=== PATIENT | female | born 1980 | race Caucasian/White ===

== ENCOUNTER 2022-02-07 10:14 | Emergency (ER) | payer SELFPAY ==
[2022-02-07 10:42] VITALS: BP 119/73; PULSE 120; RESP 24; TEMP 37.8; O2SAT 98; BMI 26.1
--- NOTE | 2022-02-07 10:45 | XR_ITS ---
WS: [id number] Exam: XR chest 1V portable [id number] Date/Time of Exam: 02/07/2022 10:30 AM Reason For Exam: sob Comparison 06/07/2016. The lungs are clear and fully expanded. Normal cardiomediastinal silhouette. Regional bony elements a ppear normal. No pleural effusions. XR/XR chest 1V portable [id number] IMPRESSION: 1. Negative chest.
--- NOTE | 2022-02-07 10:53 | ED_ITS ---
HPI - Fever General: Chief Complaint: Fever Stated Complaint: fever,sore throat,sob Time Seen by Provider: 02/07/22 10:52 History of Present Illness: Mr. Ballard is a 41-year-old lady with history of psychiatric disorder, diabetes, polycystic ovary disease, MRSA infection, tobaccoism presented to the emergency department due to generalized illness. She reports onset of symptoms 3 to 4 days ago and subacute. Endorses fevers, cough, body aches, generalized malaise, nausea, weakness, and near syncope. She was previously seen at outside facility diagnosed with viral syndrome however symptoms have continued to worsen despite inhaler treatment. Intensity symptoms is moderate to severe worse with exertion and movement. Body aches are the largest component of the patient's generalized discomfort. Does have sick contacts though not close contacts at work. No other specific changes in health, exacerbating, or alleviating factors identified. Onset (ago): day(s) Context: sick contacts Exacerbating factors: exertion Relieving factors: nothing Associated symptoms: Reports chills, cough, headache(s), myalgias, nausea, short of breath and sore throat Review of Systems General: Reports: 10 or more systems reviewed and unremarkable except in HPI and below Const: Reports: chills GI: Reports: nausea Neuro: Reports: headache(s) PFSH ED PFSH: Medical History (Updated 02/23/22 @ 17:21 by David Bell MD) No significant past medical history Surgical History (Updated 02/23/22 @ 17:21 by David Bell MD) No significant past surgical history Physical Exam Const: COMMON NORMALS: alert GENERAL APPEARANCE: cooperative, well developed and ill appearing (Somewhat) HENMT: COMMON NORMALS: normocephalic and atraumatic HEAD & SCALP: normocephalic and atraumatic OTHER: Mild posterior pharyngeal erythema 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 Eye: COMMON NORMALS: conjunctivae normal CONJUNCTIVA: Yes conjunctivae normal SCLERA: sclerae normal Neck/C-Spine: COMMON NORMALS: supple GENERAL: Yes trachea midline Resp: COMMON NORMALS: clear to auscultation bilaterally EFFORT & INSPECTION: Yes able to speak in complete sentences AUSCULTATION: clear to auscultation bilaterally Cardio: COMMON NORMALS: regular rhythm RATE: tachycardic RHYTHM: regular rhythm GI: COMMON NORMALS: Soft to palpation PALPATION: Yes Soft to palpation and No Tenderness to palpation present (GI) PERCUSSION: normal to percussion Extremity: GENERAL: Yes normal exam except as noted and No edema Neuro: COMMON NORMALS: moves all extremities SENSORIUM/ORIENTATION: Yes alert and No Orientation impaired Psych: COMMON NORMALS: mental status grossly normal and Normal thought process present THOUGHT PROCESS: Normal thought process present Course Vital Signs: Vital signs: Vital Signs Temperature 100.1 F H 02/07/22 10:42 Pulse Rate 89 02/07/22 13:44 Respiratory Rate 16 02/07/22 14:20 Blood Pressure 116/81 02/07/22 13:44 Pulse Oximetry 93 02/07/22 13:44 Oxygen Delivery Me thod 02/07/22 13:44 MDM - Fever Medical Decision Making 41-year-old lady presenting with upper respiratory symptoms as well as cough and shortness of breath. Exam as above. No evidence of acute airway compromise and patient is nontoxic in appearance. Patient is tachycardic and mildly tachypneic. No significant hematologic abnormalities, metabolic panel with mild leukocytosis. No UTI, rapid viral studies and strep negative. Chest x-ray with no lobar consolidation or pneumothorax. Patient feels improved with antiemetic, analgesia, antiemetic, and IV fluids. She is able to tolerate p.o. intake. Most likely etiology of patient symptoms is viral illness with dehydration. The results of ED evaluation were discussed with the patient including prescriptions and/or symptomatic cares (if applicable) including appropriate and responsible use, followup plan, and return precautions. The patient verbalized understanding and felt safe for discharge. Medical Records I reviewed the patient's medical records. Lab Data I reviewed the patient's lab results. 02/07/22 11:25 02/07/22 11:25 Radiology Impressions Chest X-Ray 02/07/22 10:45 IMPRESSION: 1. Negative chest. Laboratory Results WBC 6.1 10^3/uL (4.0-10.0) 02/07/22 11:25 RBC 4.85 10^6/uL (4.1-5.3) 02/07/22 11:25 Hgb 14.0 g/dL (11.5-15.3) 02/07/22 11:25 Hct 43.9 % (37.0-47.0) 02/07/22 11:25 MCV 90.5 fl (81-99) 02/07/22 11:25 MCH 28.9 pg (28.0-34.0) 02/07/22 11:25 MCHC 31.9 g/dL (30.0-36.0) 02/07/22 11:25 RDW 13.2 % (12.1-15.1) 02/07/22 11:25 Plt Count 301 10^3/cmm (130-400) 02/07/22 11:25 MPV 9.7 fL (7.4-10.4) 02/07/22 11:25 Neut % (Auto) 79.1 % 02/07/22 11:25 Lymph % (Auto) 8.3 % 02/07/22 11:25 [place] % (Auto) 10.8 % 02/07/22 11:25 Eos % (Auto) 0.8 % 02/07/22 11:25 Baso % (Auto) 0.7 % 02/07/22 11:25 Neut # (Auto) 4.84 10^3/uL (1.8-7.7) 02/07/22 11:25 Lymph # (Auto) 0.5 10^3/uL (0.8-4.8) L 02/07/22 11:25 [place] # (Auto) 0.7 10^3/uL (0.2-0.9) 02/07/22 11:25 Eos # (Auto) 0.1 10^3/uL (0.0-0.8) 02/07/22 11:25 Baso # (Auto) 0.0 10^3/uL (0.0-0.1) 02/07/22 11:25 Nucleated RBC % (auto) 0 % 02/07/22 11:25 Nucleated RBCs # 0.0 /100WBC 02/07/22 11:25 Sodium 132 mmol/L (136-145) L 02/07/22 11:25 Potassium 4.3 mmol/L (3.5-5.1) 02/07/22 11:25 Chloride 100 mmol/L (98-107) 02/07/22 11:25 Carbon Dioxide 21 mmol/L (22-29) L 02/07/22 11:25 Anion Gap 15.3 (5-19) 02/07/22 11:25 BUN 7 mg/dL (6-20) 02/07/22 11:25 Creatinine 0.7 mg/dL (0.5-0.9) 02/07/22 11:25 GFR Calculation 93.2 mL/min (90-130) 02/07/22 11:25 Glucose 93 mg/dL (65-115) 02/07/22 11:25 Calculated Osmolality 272 mOsm/kg (285-295) L 02/07/22 11:25 Lactic Acid 1.2 mmol/L (0.5-2.2) 02/07/22 11:25 Calcium 9.6 mg/dL (8.5-10.5) 02/07/22 11:25 Total Bilirubin 0.2 mg/dL (0.15-1.2) 02/07/22 11:25 AST 19 U/L (0-32) 02/07/22 11:25 ALT 16 U/L (0-33) 02/07/22 11:25 Alkaline Phosphatase 79 U/L (35-105) 02/07/22 11:25 C-Reactive Protein 5.0 mg/L (0.0-4.9) H 02/07/22 11:25 Total Protein 7.8 g/dL (6.6-8.7) 02/07/22 11:25 Albumin 4.5 g/dL (3.5-5.2) 02/07/22 11:25 Globulin 3.3 g/dL (1.3-4.6) 02/07/22 11:25 Procalcitonin 0.06 ng/mL (0-0.5) 02/07/22 11:25 HCG, Qual Negative (Negative) 02/07/22 11:06 Urine Color Yellow (Yellow) 02/07/22 11:06 Urine Appearance Clear (CLEAR) 02/07/22 11:06 Urine pH 6 (5-7) 02/07/22 11:06 Ur Specific [place] 1.010 (1.005-1.030) 02/07/22 11:06 Urine Protein Neg (Negative) 02/07/22 11:06 Urine Glucose (UA) Norm (Normal) 02/07/22 11:06 Urine Ketones Negative (Negative) 02/07/22 11:06 Urine Blood Neg (Negative) 02/07/22 11:06 Urine Nitrate Negative (Negative) 02/07/22 11:06 Urine Bilirubin Neg (Negative) 02/07/22 11:06 Urine Urobilinogen Neg mg/dL (Negative) 02/07/22 11:06 Ur Leukocyte Esterase Negative (Negative) 02/07/22 11:06 Influenza Type A Ag negative (Negative) 02/07/22 11:06 Influenza Type B Ag negative (Negative) 02/07/22 11:06 SARS-CoV-2 Ag (Rapid) negative (Negative) 02/07/22 11:06 Group A Strep Rapid Negative (Negative) 02/07/22 11:06 Discharge Plan Discharge Patient Disposition: Home Clinical Impression: Acute viral syndrome, Acute dehydration Condition: Stable Prescriptions: New ondansetron HCl 4 mg tablet 4 mg PO Q8H PRN (Reason: nausea and vomiting) Qty: 15 0RF Discharge Orders: Discharge ED (Routine); Ordered 02/07/22 Ordered By: David Bell Discharge Diet: Advance as tolerated and Clear Liquid Discharge Activity: Increase activity as tolerated Patient Instructions: Dehydration (ED), Viral Syndrome (ED) Activity Restrictions/Additional Instructions: Thank you for visiting the emergency department. You were seen and evaluated for nausea, vomiting, fever, and generalized illness. The exact cause of your symptoms is unclear though likely related to viral syndrome. We are pleased that you had improvement with treatment in the emergency department. Please follow-up with a primary care provider. You may use eugm-bht-[id number] medications such as acetaminophen and ibuprofen for pain however please do not exceed the daily recommended dosage as listed on the packaging and please keep in mind that many namebrand medications contain the same active ingredients. Please avoid these medications if previously instructed to do so by another physician due to other underlying medical condition. Return to the emergency department for uncontrolled symptoms or anything else that you are concerned about and feel needs emergency department evaluation. Coding Level of Care Code ED Hob Grinder for River Fwmiguel Exam Comprehensive
[2022-02-07 11:16] LABS: Add Urine Microscopic? NO; Charge for UA Resulting for Rev
[2022-02-07 11:22] LABS: Bilirubin Urine Neg (Negative); Blood Urine Neg (Negative); Glucose Urine UA Norm (Normal); HCG Qualitative Urine. Negative (Negative); Ketones Urine Negative (Negative); Leukocyte Esterase Urine Negative (Negative); Nitrate Urine Negative (Negative); Protein Urine Neg (Negative); Urine Appearance Clear (CLEAR); Urine Color Yellow (Yellow); Urobilinogen Urine Neg (Negative); pH Urine 6 (5-7)
[2022-02-07 11:38] LABS: Rapid Strep A Test Negative (Negative)
[2022-02-07 11:39] LABS: Basophils % 0.7 %; Eosinophils # 0.1 10^3/uL (0.0-0.8); Eosinophils % 0.8 %; Hematocrit 43.9 % (37.0-47.0); Lymphocytes # 0.5 10^3/uL (0.8-4.8); Lymphocytes % 8.3 %; Mean Corpuscular HGB Conc 31.9 g/dL (30.0-36.0); Mean Corpuscular Hemoglobin 28.9 pg (28.0-34.0); Mean Corpuscular Volume 90.5 fl (81-99); Mean Platelet Volume 9.7 fL (7.4-10.4); Monocytes # 0.7 10^3/uL (0.2-0.9); Monocytes % 10.8 %; Neutrophils # 4.84 10^3/uL (1.8-7.7); Neutrophils % 79.1 %; Nucleated Red Blood Cells % 0 %; Platelet Count 301 10^3/cmm (130-400); Red Blood Count 4.85 10^6/uL (4.1-5.3); Red Cell Distribution Width 13.2 % (12.1-15.1); White Blood Count 6.1 10^3/uL (4.0-10.0)
[2022-02-07 11:43] LABS: Influenza A by IFA negative (Negative); Influenza B by IFA negative (Negative); SARS Covid-2 Antigen negative (Negative)
[2022-02-07 11:58] LABS: Lactic Sepsis W/Reflex 1.2 mmol/L (0.5-2.2)
[2022-02-07 11:59] LABS: Alanine Aminotransferase 16 U/L (0-33); Albumin Level 4.5 g/dL (3.5-5.2); Alkaline Phosphatase 79 U/L (35-105); Anion Gap 15.3 (5-19); Aspartate Amino Transferase 19 U/L (0-32); Blood Urea Nitrogen 7 mg/dL (6-20); Calcium 9.6 mg/dL (8.5-10.5); Carbon Dioxide 21 mmol/L (22-29); Chloride 100 mmol/L (98-107); Globulin 3.3 g/dL (1.3-4.6); Glomerular Filtration Rate 93.2 mL/min (90-130); Glucose 93 mg/dL (65-115); Osmolality Calculated 272 mOsm/kg (285-295); Potassium 4.3 mmol/L (3.5-5.1); Sodium 132 mmol/L (136-145); Total Bilirubin 0.2 mg/dL (0.15-1.2); Total Protein 7.8 g/dL (6.6-8.7)
[2022-02-07] MEDS: ondansetron 2 mg/ML SDV 2 mL 4 MG IVP (12:03)
[2022-02-07] MEDS: sodium chloride 0.9% 1,000 ML 999 ML IV ×2 (12:03→13:27)
[2022-02-07] MEDS: ketorolac 30 mg/mL INJ 15 MG IVP (12:03)
[2022-02-07] MEDS: acetaminophen 500 mg Tablet 1000 MG PO (12:03)
[2022-02-07 12:04] VITALS: BP 116/81; PULSE 106; RESP 18; O2SAT 97
[2022-02-07 12:05] LABS: Procalcitonin 0.06 ng/mL (0-0.5)
[2022-02-07 13:44] VITALS: BP 116/81; PULSE 89; RESP 16; O2SAT 93
[2022-02-07 14:20] VITALS: RESP 16
== END 2022-02-07 14:22 | disposition home or self-care (01) ==
PROVIDERS: Emergency Provider Emergency Medicine
DX: B34.9 Viral infection, unspecified (principal); E86.0 Dehydration
CPT/HCPCS: 36415; 71045; 80053; 81003; 81025; 83605; 84145; 85025; 86140; 87040; 87081; 87426; 87804; 87880; 96361; 96374; 96375; 99284; J1885; J2405; J7030

== ENCOUNTER 2022-06-12 14:36 | Emergency (ER) | payer SELFPAY ==
[2022-06-12 14:38] VITALS: BP 140/84; PULSE 84; RESP 16; TEMP 36.7; O2SAT 98; BMI 25.8
--- NOTE | 2022-06-12 14:45 | ECG_ITS ---
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 Measurements Intervals [place] Rate: 86 P: 151 SD: 171 QRS: 111 QRSD: 105 T: 82 QT: 355 QTc: 426 Interpretive Statements SINUS RHYTHM ARM LEADS REVERSED [INVERTED P AND QRS IN I] Compared to ECG 12/28/2015 15:14:04 T-wave abnormality no longer present Electronically Signed On 06-12-2022 16:26:56 CDT by Harshad Hogue M.D. [id number]
[2022-06-12 15:52] LABS: Basophils # 0.1 10^3/uL (0.0-0.1); Basophils % 0.8 %; Eosinophils # 0.1 10^3/uL (0.0-0.8); Eosinophils % 1.5 %; Hematocrit 40.4 % (37.0-47.0); Hemoglobin 13.2 g/dL (11.5-15.3); Lymphocytes # 2.4 10^3/uL (0.8-4.8); Lymphocytes % 26.8 %; Mean Corpuscular HGB Conc 32.7 g/dL (30.0-36.0); Mean Corpuscular Hemoglobin 28.8 pg (28.0-34.0); Mean Platelet Volume 9.8 fL (7.4-10.4); Monocytes # 0.6 10^3/uL (0.2-0.9); Monocytes % 6.7 %; Neutrophils # 5.72 10^3/uL (1.8-7.7); Nucleated Red Blood Cells % 0 %; Platelet Count 320 10^3/cmm (130-400); Red Blood Count 4.59 10^6/uL (4.1-5.3); Red Cell Distribution Width 13.4 % (12.1-15.1); White Blood Count 8.9 10^3/uL (4.0-10.0)
[2022-06-12 16:20] LABS: Troponin(5th) Baseline 6 ng/L (0-10)
[2022-06-12 16:21] LABS: Anion Gap 13.9 (5-19); Blood Urea Nitrogen 11 mg/dL (6-20); Calcium 9.2 mg/dL (8.5-10.5); Carbon Dioxide 25 mmol/L (22-29); Chloride 102 mmol/L (98-107); Glomerular Filtration Rate 93.2 mL/min (90-130); Glucose 108 mg/dL (65-115); Osmolality Calculated 284 mOsm/kg (285-295); Potassium 3.9 mmol/L (3.5-5.1); Sodium 137 mmol/L (136-145)
--- NOTE | 2022-06-12 16:26 | ED_ITS ---
HPI - Chest Pain General: Chief Complaint: Chest Pain Stated Complaint: CP Time Seen by Provider: 06/12/22 16:26 [facility] ED PFSH: Medical History (Updated 02/23/22 @ 17:21 by David Bell MD) No significant past medical history Surgical History (Updated 02/23/22 @ 17:21 by David Bell MD) No significant past surgical history Course Vital Signs: Vital signs: Vital Signs Temperature 98.1 F 06/12/22 14:38 Pulse Rate 84 06/12/22 14:38 Respiratory Rate 16 06/12/22 14:38 Blood Pressure 140/84 06/12/22 14:38 Pulse Oximetry 98 06/12/22 14:38 Oxygen Delivery Me thod Room Air 06/12/22 14:38 MDM - Chest Pain Lab Data 06/12/22 15:35 06/12/22 15:35 Laboratory Results WBC 8.9 10^3/uL (4.0-10.0) 06/12/22 15:35 RBC 4.59 10^6/uL (4.1-5.3) 06/12/22 15:35 Hgb 13.2 g/dL (11.5-15.3) 06/12/22 15:35 Hct 40.4 % (37.0-47.0) 06/12/22 15:35 MCV 88.0 fl (81-99) 06/12/22 15:35 MCH 28.8 pg (28.0-34.0) 06/12/22 15:35 MCHC 32.7 g/dL (30.0-36.0) 06/12/22 15:35 RDW 13.4 % (12.1-15.1) 06/12/22 15:35 Plt Count 320 10^3/cmm (130-400) 06/12/22 15:35 MPV 9.8 fL (7.4-10.4) 06/12/22 15:35 Neut % (Auto) 64.0 % 06/12/22 15:35 Lymph % (Auto) 26.8 % 06/12/22 15:35 [place] % (Auto) 6.7 % 06/12/22 15:35 Eos % (Auto) 1.5 % 06/12/22 15:35 Baso % (Auto) 0.8 % 06/12/22 15:35 Neut # (Auto) 5.72 10^3/uL (1.8-7.7) 06/12/22 15:35 Lymph # (Auto) 2.4 10^3/uL (0.8-4.8) 06/12/22 15:35 [place] # (Auto) 0.6 10^3/uL (0.2-0.9) 06/12/22 15:35 Eos # (Auto) 0.1 10^3/uL (0.0-0.8) 06/12/22 15:35 Baso # (Auto) 0.1 10^3/uL (0.0-0.1) 06/12/22 15:35 Nucleated RBC % (auto) 0 % 06/12/22 15:35 Nucleated RBCs # 0.0 /100WBC 06/12/22 15:35 Sodium 137 mmol/L (136-145) 06/12/22 15:35 Potassium 3.9 mmol/L (3.5-5.1) 06/12/22 15:35 Chloride 102 mmol/L (98-107) 06/12/22 15:35 Carbon Dioxide 25 mmol/L (22-29) 06/12/22 15:35 Anion Gap 13.9 (5-19) 06/12/22 15:35 BUN 11 mg/dL (6-20) 06/12/22 15:35 Creatinine 0.7 mg/dL (0.5-0.9) 06/12/22 15:35 GFR Calculation 93.2 mL/min (90-130) 06/12/22 15:35 Glucose 108 mg/dL (65-115) 06/12/22 15:35 Calculated Osmolality 284 mOsm/kg (285-295) L 06/12/22 15:35 Calcium 9.2 mg/dL (8.5-10.5) 06/12/22 15:35 Troponin T Baseline 6 ng/L (0-10) 06/12/22 15:35 Discharge Plan Discharge Condition: Stable Prescriptions: No Action ondansetron HCl 4 mg tablet 4 mg PO Q8H PRN (Reason: nausea and vomiting) Qty: 15 0RF Coding Level of Care Code ED Keg Varnisher for Chg Amanda
--- NOTE | 2022-06-12 17:11 | ECG_ITS ---
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 Measurements Intervals [place] Rate: 78 P: 63 [place]: 179 QRS: 54 QRSD: 110 T: 42 QT: 380 QTc: 435 Interpretive Statements SINUS RHYTHM POSSIBLE LEFT ATRIAL ENLARGEMENT [-0.1mV P-WAVE IN V1/V2] INCOMPLETE RIGHT BUNDLE BRANCH BLOCK [90+ ms QRS DURATION, TERMINAL R IN V1/V2, 40+ ms S IN I/aVL/V4/V5/V6] Compared to ECG 06/12/2022 14:45:54 Incomplete right bundle-branch block now present Electronically Signed On 06-12-2022 19:45:45 CDT by Harshad Hogue M.D. [id number]
[2022-06-12 17:36] VITALS: O2SAT 98
--- NOTE | 2022-06-12 17:36 | W.ED.CHESTPA ---
Documented by User: Dell Lubin DO 06/12/22 17:42 HPI - Chest Pain General: Chief Complaint: Chest Pain Stated Complaint: CP Time Seen by Provider: 06/12/22 16:26 History of Present Illness: Patient presents to the ER with chest pain and palpitations since 7 AM this morning. Patient also states she has a headache. Patient has had the symptoms multiple times in the past. MD complaint: chest pain Onset (ago): hour(s) (About 10 hours ago) Timing of current episode: episodic and now resolved Prior episodes: Yes Onset: during rest Pain location: left chest Pain radiation: none Severity: mild Relieving factors: nothing Exacerbating factors: nothing Associated symptoms: Reports palpitations and other (Headache dizziness) Review of Systems General: Reports: 10 or more systems reviewed and unremarkable except in HPI and below Card: Reports: palpitations PFSH ED PFSH: Medical History No significant past medical history Surgical History No significant past surgical history Physical Exam Const: COMMON NORMALS: no acute distress, average body habitus, patient oriented x3, no limitations, healthy appearing, alert and well nourished HENMT: COMMON NORMALS: normocephalic, atraumatic, hearing grossly normal bilaterally, external ears normal, Normal external nose present and moist oral mucous membranes HEAD & SCALP: normocephalic and atraumatic NOSE: Normal external nose present EXTERNAL EAR: Yes external ears normal Eye: COMMON NORMALS: Equal, round and reactive pupils present, EOMs intact bilaterally, conjunctivae normal and no scleral icterus CONJUNCTIVA: Yes conjunctivae normal PUPIL: Yes Equal, round and reactive pupils present Neck/C-Spine: COMMON NORMALS: full ROM, no lymphadenopathy, supple, no meningeal signs, no JVD and Thyroid normal THYROID: Thyroid normal Lymph: LYMPHATIC: no lymphadenopathy noted Chest: COMMONS NORMALS: normal inspection of the chest and normal palpation of entire chest wall Resp: COMMON NORMALS: normal respiratory effort, No retractions, No use of accessory muscles and clear to auscultation bilaterally AUSCULTATION: clear to auscultation bilaterally Cardio: COMMON NORMALS: no JVD, regular rate, regular rhythm, S1 normal heart sound present and S2 normal heart sound present RATE: regular rate RHYTHM: regular rhythm HEART SOUNDS: S1 normal heart sound present and S2 normal heart sound present GI: COMMON NORMALS: Normal to inspection, nondistended, normoactive bowel sounds present, Soft to palpation, non-tender, No hepatosplenomegaly present and no masses PALPATION: Yes Soft to palpation and Yes No hepatosplenomegaly present Neuro: COMMON NORMALS: patient oriented x3 SENSORIUM/ORIENTATION: Yes alert MENINGEAL SIGNS: Yes no meningeal signs Course Vital Signs: Vital signs: Vital Signs Temperature 98.1 F 06/12/22 14:38 Pulse Rate 78 06/12/22 18:05 Respiratory Rate 16 06/12/22 14:38 Blood Pressure 140/84 06/12/22 14:38 Pulse Oximetry 98 06/12/22 18:05 Oxygen Delivery Me thod Room Air 06/12/22 18:05 MDM - Chest Pain Differential Diagnosis Unlikely acute massive pulmonary embolism, acute respiratory failure, acute myocardial infarction, cardiac arrest or sudden cardiac Lab Data 06/12/22 15:35 06/12/22 15:35 Radiology Impressions Chest X-Ray 06/12/22 18:03 IMPRESSION: No acute findings. Laboratory Results WBC 8.9 10^3/uL (4.0-10.0) 06/12/22 15:35 RBC 4.59 10^6/uL (4.1-5.3) 06/12/22 15:35 Hgb 13.2 g/dL (11.5-15.3) 06/12/22 15:35 Hct 40.4 % (37.0-47.0) 06/12/22 15:35 MCV 88.0 fl (81-99) 06/12/22 15:35 MCH 28.8 pg (28.0-34.0) 06/12/22 15:35 MCHC 32.7 g/dL (30.0-36.0) 06/12/22 15:35 RDW 13.4 % (12.1-15.1) 06/12/22 15:35 Plt Count 320 10^3/cmm (130-400) 06/12/22 15:35 MPV 9.8 fL (7.4-10.4) 06/12/22 15:35 Neut % (Auto) 64.0 % 06/12/22 15:35 Lymph % (Auto) 26.8 % 06/12/22 15:35 [place] % (Auto) 6.7 % 06/12/22 15:35 Eos % (Auto) 1.5 % 06/12/22 15:35 Baso % (Auto) 0.8 % 06/12/22 15:35 Neut # (Auto) 5.72 10^3/uL (1.8-7.7) 06/12/22 15:35 Lymph # (Auto) 2.4 10^3/uL (0.8-4.8) 06/12/22 15:35 [place] # (Auto) 0.6 10^3/uL (0.2-0.9) 06/12/22 15:35 Eos # (Auto) 0.1 10^3/uL (0.0-0.8) 06/12/22 15:35 Baso # (Auto) 0.1 10^3/uL (0.0-0.1) 06/12/22 15:35 Nucleated RBC % (auto) 0 % 06/12/22 15:35 Nucleated RBCs # 0.0 /100WBC 06/12/22 15:35 Sodium 137 mmol/L (136-145) 06/12/22 15:35 Potassium 3.9 mmol/L (3.5-5.1) 06/12/22 15:35 Chloride 102 mmol/L (98-107) 06/12/22 15:35 Carbon Dioxide 25 mmol/L (22-29) 06/12/22 15:35 Anion Gap 13.9 (5-19) 06/12/22 15:35 BUN 11 mg/dL (6-20) 06/12/22 15:35 Creatinine 0.7 mg/dL (0.5-0.9) 06/12/22 15:35 GFR Calculation 93.2 mL/min (90-130) 06/12/22 15:35 Glucose 108 mg/dL (65-115) 06/12/22 15:35 Calculated Osmolality 284 mOsm/kg (285-295) L 06/12/22 15:35 Calcium 9.2 mg/dL (8.5-10.5) 06/12/22 15:35 Troponin T Baseline 6 ng/L (0-10) 06/12/22 15:35 Troponin T 120 Minute 6.00 ng/L (0-10) 06/12/22 17:37 EKG Data EKG 1: I personally reviewed and interpreted this EKG as follows: EKG interpretation date: 06/12/22 EKG interpretation time: 17:11 Interpretation: EKG showed sinus rhythm with ventricular rate of 78 bpm, NV interval 179, QRS duration 110, QTc 414, incomplete right bundle branch block, no ST-T wave changes Discharge Plan Discharge Patient Disposition: Home Clinical Impression: Chest pain Condition: Stable Prescriptions: No Action No Known Home Medications Discharge Orders: Discharge ED (Routine); Ordered 06/12/22 Ordered By: Shonda Turner Discharge Diet: Advance as tolerated Discharge Activity: Resume usual activity Patient Instructions: Chest Pain (ED) Coding Level of Care Code ED Community Health Nurse Supervisor for Chg Fwd Documented by User: Shonda Turner MD 06/12/22 18:42 HPI - Chest Pain General: Chief Complaint: Chest Pain Stated Complaint: CP Time Seen by Provider: 06/12/22 16:26 [facility] ED PFSH: Medical History No significant past medical history Surgical History No significant past surgical history Course Vital Signs: Vital signs: Vital Signs Temperature 98.1 F 06/12/22 14:38 Pulse Rate 78 06/12/22 18:05 Respiratory Rate 16 06/12/22 14:38 Blood Pressure 140/84 06/12/22 14:38 Pulse Oximetry 98 06/12/22 18:05 Oxygen Delivery Me thod Room Air 06/12/22 18:05 MDM - Chest Pain Medical Decision Making Patient presents here with chest pains atypical in nature her initial repeat troponin are both normal no signs of acute coronary syndrome or pulmonary embolism or dissection she is stable for discharge she is to follow-up PCP and return if worsening. Medical Records I reviewed the patient's medical records. Lab Data 06/12/22 15:35 06/12/22 15:35 Radiology Impressions Chest X-Ray 06/12/22 18:03 IMPRESSION: No acute findings. Laboratory Results WBC 8.9 10^3/uL (4.0-10.0) 06/12/22 15:35 RBC 4.59 10^6/uL (4.1-5.3) 06/12/22 15:35 Hgb 13.2 g/dL (11.5-15.3) 06/12/22 15:35 Hct 40.4 % (37.0-47.0) 06/12/22 15:35 MCV 88.0 fl (81-99) 06/12/22 15:35 MCH 28.8 pg (28.0-34.0) 06/12/22 15:35 MCHC 32.7 g/dL (30.0-36.0) 06/12/22 15:35 RDW 13.4 % (12.1-15.1) 06/12/22 15:35 Plt Count 320 10^3/cmm (130-400) 06/12/22 15:35 MPV 9.8 fL (7.4-10.4) 06/12/22 15:35 Neut % (Auto) 64.0 % 06/12/22 15:35 Lymph % (Auto) 26.8 % 06/12/22 15:35 [place] % (Auto) 6.7 % 06/12/22 15:35 Eos % (Auto) 1.5 % 06/12/22 15:35 Baso % (Auto) 0.8 % 06/12/22 15:35 Neut # (Auto) 5.72 10^3/uL (1.8-7.7) 06/12/22 15:35 Lymph # (Auto) 2.4 10^3/uL (0.8-4.8) 06/12/22 15:35 [place] # (Auto) 0.6 10^3/uL (0.2-0.9) 06/12/22 15:35 Eos # (Auto) 0.1 10^3/uL (0.0-0.8) 06/12/22 15:35 Baso # (Auto) 0.1 10^3/uL (0.0-0.1) 06/12/22 15:35 Nucleated RBC % (auto) 0 % 06/12/22 15:35 Nucleated RBCs # 0.0 /100WBC 06/12/22 15:35 Sodium 137 mmol/L (136-145) 06/12/22 15:35 Potassium 3.9 mmol/L (3.5-5.1) 06/12/22 15:35 Chloride 102 mmol/L (98-107) 06/12/22 15:35 Carbon Dioxide 25 mmol/L (22-29) 06/12/22 15:35 Anion Gap 13.9 (5-19) 06/12/22 15:35 BUN 11 mg/dL (6-20) 06/12/22 15:35 Creatinine 0.7 mg/dL (0.5-0.9) 06/12/22 15:35 GFR Calculation 93.2 mL/min (90-130) 06/12/22 15:35 Glucose 108 mg/dL (65-115) 06/12/22 15:35 Calculated Osmolality 284 mOsm/kg (285-295) L 06/12/22 15:35 Calcium 9.2 mg/dL (8.5-10.5) 06/12/22 15:35 Troponin T Baseline 6 ng/L (0-10) 06/12/22 15:35 Troponin T 120 Minute 6.00 ng/L (0-10) 06/12/22 17:37 Discharge Plan Discharge Patient Disposition: Home Clinical Impression: Chest pain Condition: Stable Prescriptions: No Action No Known Home Medications Discharge Orders: Discharge ED (Routine); Ordered 06/12/22 Ordered By: Shonda Turner Discharge Diet: Advance as tolerated Discharge Activity: Resume usual activity Patient Instructions: Chest Pain (ED) Coding Level of Care Code ED Community Health Nurse Supervisor for River Patel
--- NOTE | 2022-06-12 18:03 | XRR_ITS ---
PROCEDURE INFORMATION: Exam: XR Chest Exam date and time: 06/12/2022 6:07 PM Age: 41 years old Clinical indication: Pain; Chest pressure; Additional info: Cp TECHNIQUE: Imaging protocol: Radiologic exam of the chest. Views: 1 view. COMPARISON: CR XR chest 1V portable [id number] 02/07/2022 11:06 AM FINDINGS: Lungs: Unremarkable. No consolidation. Pleural spaces: Unremarkable. No pleural effusion. No pneumothorax. Heart/Mediastinum: Unremarkable. No cardiomegaly. Bones/joints: Unremarkable. XR/XR chest 1V portable [id number] IMPRESSION: No acute findings.
[2022-06-12 18:05] VITALS: PULSE 78; O2SAT 98
[2022-06-12 18:45] LABS: Troponin 5 2HR Delta 0 ABS# (0-10)
--- NOTE | 2022-06-14 13:00 | DCPLANNER ---
manager transition called patient due to no primary care physician - no answer at this time.
== END 2022-06-12 18:53 | disposition home or self-care (01) ==
PROVIDERS: Emergency Medicine; Emergency Provider Emergency Medicine
DX: R07.9 Chest pain, unspecified (principal)
CPT/HCPCS: 36415; 71045; 80048; 84484; 85025; 93005; 99285

== ENCOUNTER 2022-06-25 19:33 | Emergency (ER) | payer OTHER, SELFPAY ==
[2022-06-25 19:58] VITALS: BP 103/71; PULSE 79; RESP 16; TEMP 36.6; O2SAT 99
--- NOTE | 2022-06-25 20:08 | CTR_ITS ---
PROCEDURE INFORMATION: Exam: CT Abdomen And Pelvis With Contrast Exam date and time: 06/25/2022 9:06 PM Age: 41 years old Clinical indication: Abdominal pain; Localized; Right lower quadrant (rlq); Additional info: Rlq pain, n/v, TECHNIQUE: Imaging protocol: Computed tomography of the abdomen and pelvis with contrast. Radiation optimization: All CT scans at this facility use at least one of these dose optimization techniques: automated exposure control; mA and/or kV adjustment per patient size (includes targeted exams where dose is matched to clinical indication); or iterative reconstruction. Contrast material: OMNI 350; Contrast volume: 100 ml; Contrast route: INTRAVENOUS (IV); REPORTING DATA: Count of CT and Cardiac NM exams in prior 12 months: This patient has received 0 known CTs and 0 known cardiac nuclear medicine studies in the 12 months prior to the current study. COMPARISON: CR (CHEST, ) 06/12/2022 6:07 PM RADIATION DOSE METRICS: Total DLP (mGy-cm): 649 FINDINGS: Liver: Normal. No mass. Gallbladder and bile ducts: Normal. No calcified stones. No ductal dilation. Pancreas: Normal. No ductal dilation. Spleen: Normal. No splenomegaly. Adrenal glands: Normal. No mass. Kidneys and ureters: Normal. No hydronephrosis. Stomach and bowel: Prominent fluid in the small bowel without dilation suggestive of an enteritis. Appendix: No evidence of appendicitis. Intraperitoneal space: Unremarkable. No free air. No significant fluid collection. Vasculature: Unremarkable. No abdominal aortic aneurysm. Lymph nodes: Unremarkable. No enlarged lymph nodes. Urinary bladder: Unremarkable as visualized. Reproductive: Right ovary 22 mm peripherally enhancing cyst suggestive of a partially collapsed follicle, ultrasound could further evaluate this as clinically indicated. Bones/joints: Unremarkable. No acute fracture. Soft tissues: Unremarkable. CT/CT abdomen pelvis w con* [id number] IMPRESSION: 1. Prominent fluid in the small bowel without dilation suggestive of an enteritis. 2. Right ovary 22 mm peripherally enhancing cyst suggestive of a partially collapsed follicle, ultrasound could further evaluate this as clinically indicated.
--- NOTE | 2022-06-25 20:13 | ED_ITS ---
HPI - Abdominal Pain General: Chief Complaint: Abdominal Pain Stated Complaint: Dr Armstrong sent, appendix Time Seen by Provider: 06/25/22 20:07 History of Present Illness: 41-year-old female comes in today for complaints of lower abdominal pain. Pain started this morning with episodes of nausea and vomiting. Patient reports no constipation or diarrhea. Patient denies any fever. Patient's last meal was about 30 minutes prior to arrival to the ER. Patient takes no routine medica tions. 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 Patient appears nontoxic. Patient appears in moderate pain. Patient was seen at outpatient clinic was referred to the ER for concerns of possible appendicitis. Patient denies any drugs or alcohol but does smoke tobacco. Associated Symptoms: Reports nausea and vomiting Review of Systems General: Reports: 10 or more systems reviewed and unremarkable except in HPI and below Card: Denies: chest pain Resp: Denies: dyspnea GI: Reports: abdominal pain, nausea and vomiting : Denies: difficulty voiding Musc: Denies: back pain PFS ED PFSH: Medical History No significant past medical history Surgical History No significant past surgical history Physical Exam Const: COMMON NORMALS: alert HENMT: COMMON NORMALS: normocephalic HEAD & SCALP: normocephalic Neck/C-Spine: COMMON NORMALS: full ROM Resp: COMMON NORMALS: normal respiratory effort and clear to auscultation bilaterally AUSCULTATION: clear to auscultation bilaterally Cardio: COMMON NORMALS: regular rate and regular rhythm RATE: regular rate RHYTHM: regular rhythm GI: COMMON NORMALS: Soft to palpation AUSCULTATION: Yes normoactive bowel sounds PALPATION: Yes Soft to palpation and Yes Tenderness to palpation present (GI) Details: RLQ : COMMON NORMALS: Yes no CVA tenderness BLADDER/KIDNEY EXAM: Yes no CVA tenderness Back/Pelvis: COMMON NORMALS: no CVA tenderness Extremity: COMMON NORMALS: normal to inspection Neuro: SENSORIUM/ORIENTATION: Yes alert Skin: COMMON NORMALS: turgor normal GENERAL SKIN EXAM: turgor normal Course Vital Signs: Vital signs: Vital Signs Temperature 97.9 F 06/25/22 19:58 Pulse Rate 81 06/25/22 21:36 Respiratory Rate 18 06/25/22 21:36 Blood Pressure 107/66 06/25/22 21:36 Pulse Oximetry 96 06/25/22 21:36 Oxygen Delivery Me thod Room Air 06/25/22 21:36 MDM - Abdominal Pain Medical Decision Making 41-year-old female comes in today for complaints of right lower quadrant abdominal pain with nausea and vomiting starting this morning. Patient appears nontoxic. Patient reports no previous surgeries to the abdomen. Abdomen is soft with some right lower quadrant tenderness. Bowel sounds are present. Vital signs are normal. Differential diagnosis includes but not limited to ovarian cyst, renal colic, appendicitis, gastroenteritis, colitis. Laboratory values were unremarkable. CT of the abdomen pelvis noted some prominent fluid in the small bowel suggestive of enteritis and a right ovarian cyst that is collapsing. Suspect patient probably has a bout of gastroenteritis and a small ovarian cyst. Recommended light diet, fluids, Zofran for nausea and vomiting, and hydrocodone for severe pain. Recommend follow-up with primary care return to the ED for new concerns. Lab Data 06/25/22 20:25 06/25/22 20:25 Labs/Radiology: Radiology Impressions Abdomen/Pelvis CT 06/25/22 20:08 IMPRESSION: 1. Prominent fluid in the small bowel without dilation suggestive of an enteritis. 2. Right ovary 22 mm peripherally enhancing cyst suggestive of a partially collapsed follicle, ultrasound could further evaluate this as clinically indicated. Laboratory Results WBC 9.5 10^3/uL (4.0-10.0) 06/25/22 20:25 RBC 4.54 10^6/uL (4.1-5.3) 06/25/22 20:25 Hgb 13.0 g/dL (11.5-15.3) 06/25/22 20:25 Hct 40.4 % (37.0-47.0) 06/25/22 20:25 MCV 89.0 fl (81-99) 06/25/22 20:25 MCH 28.6 pg (28.0-34.0) 06/25/22 20: MCHC 32.2 g/dL (30.0-36.0) 06/25/22 20: RDW 13.7 % (12.1-15.1) 06/25/22 20:25 Plt Count 373 10^3/cmm (130-400) 06/25/22 20:25 MPV 9.6 fL (7.4-10.4) 06/25/22 20:25 Neut % (Auto) 58.9 % 06/25/22 20:25 Lymph % (Auto) 29.6 % 06/25/22 20:25 [place] % (Auto) 8.4 % 06/25/22 20:25 Eos % (Auto) 2.1 % 06/25/22 20:25 Baso % (Auto) 0.7 % 06/25/22 20:25 Neut # (Auto) 5.56 10^3/uL (1.8-7.7) 06/25/22 20:25 Lymph # (Auto) 2.8 10^3/uL (0.8-4.8) 06/25/22 20:25 [place] # (Auto) 0.8 10^3/uL (0.2-0.9) 06/25/22 20:25 Eos # (Auto) 0.2 10^3/uL (0.0-0.8) 06/25/22 20:25 Baso # (Auto) 0.1 10^3/uL (0.0-0.1) 06/25/22 20: Nucleated RBC % (auto) 0 % 06/25/22 20: Nucleated RBCs # 0.0 /100WBC 06/25/22 20:25 Sodium 137 mmol/L (136-145) 06/25/22 20:25 Potassium 4.9 mmol/L (3.5-5.1) 06/25/22 20:25 Chloride 104 mmol/L (98-107) 06/25/22 20:25 Carbon Dioxide 22 mmol/L (22-29) 06/25/22 20:25 Anion Gap 15.9 (5-19) 06/25/22 20:25 BUN 14 mg/dL (6-20) 06/25/22 20:25 Creatinine 0.7 mg/dL (0.5-0.9) 06/25/22 20:25 GFR Calculation 93.2 mL/min (90-130) 06/25/22 20:25 Glucose 97 mg/dL (65-115) 06/25/22 20:25 Calculated Osmolality 284 mOsm/kg (285-295) L 06/25/22 20:25 Calcium 9.1 mg/dL (8.5-10.5) 06/25/22 20:25 Total Bilirubin 0.3 mg/dL (0.15-1.2) 06/25/22 20:25 AST 16 U/L (0-32) 06/25/22 20:25 ALT 10 U/L (0-33) 06/25/22 20:25 Alkaline Phosphatase 80 U/L (35-105) 06/25/22 20:25 Total Protein 7.1 g/dL (6.6-8.7) 06/25/22 20: Albumin 4.1 g/dL (3.5-5.2) 06/25/22 20: Globulin 3.0 g/dL (1.3-4.6) 06/25/22 20:25 Lipase 72 U/L (13-60) H 06/25/22 20:25 HCG, Qual Negative (Negative) 06/25/22 20:25 Urine Color Yellow (Yellow) 06/25/22 22:06 Urine Appearance Clear (CLEAR) 06/25/22 22:06 Urine pH 5 (5-7) 06/25/22 22:06 Ur Specific [place] 1.020 (1.005-1.030) 06/25/22 22:06 Urine Protein Neg (Negative) 06/25/22 22:06 Urine Glucose (UA) Norm (Normal) 06/25/22 22:06 Urine Ketones Negative (Negative) 06/25/22 22:06 Urine Blood Neg (Negative) 06/25/22 22:06 Urine Nitrate Negative (Negative) 06/25/22 22:06 Urine Bilirubin Neg (Negative) 06/25/22 22:06 Urine Urobilinogen 1 mg/dL (Negative) H 06/25/22 22:06 Ur Leukocyte Esterase Trace (Negative) H 06/25/22 22:06 Urine RBC 0-4 /hpf (0-2) H 06/25/22 22:06 Urine WBC 0-4 /hpf (0-5) H 06/25/22 22:06 Ur Squamous Epith Cells 5-10 /hpf (0-5) H 06/25/22 22:06 Amorphous Sediment Not Reportable 05/09/23 22:06 Urine Bacteria 1+ /hpf (NONE) H 06/25/22 22:06 Urine Mucus 2+ /hpf 06/25/22 22:06 Discharge Plan Discharge Patient Disposition: Home Clinical Impression: Gastroenteritis Ovarian cyst Qualifiers: Laterality: right Qualified Code(s): N83.201 - Unspecified ovarian cyst, right side Condition: Stable Prescriptions: New ondansetron 4 mg tablet,disintegrating 4 mg PO Q8H PRN (Reason: nausea and vomiting) Qty: 6 0RF hydrocodone-acetaminophen 5-325 mg tablet 1 tab PO Q8H PRN (Reason: pain (scale score 7-10)) Qty: 6 0RF Discharge Orders: Discharge ED (Routine); Ordered 06/25/22 Ordered By: Rylan Garrett Discharge Diet: Advance as tolerated Discharge Activity: Increase activity as tolerated Patient Instructions: Gastroenteritis (ED) Activity Restrictions/Additional Instructions: Drink plenty of fluids. Use ondansetron 4 mg every 8 hours as needed for nausea or vomiting. Use acetaminophen and ibuprofen to control pain. Use hydrocodone for severe pain. Use ice or heat for further relief. Follow-up with primary care for further instructions. Return to ED for new concerns. Coding Level of Care Code ED [employer] for [place] [facility]
[2022-06-25 20:32] VITALS: RESP 18
[2022-06-25] MEDS: sodium chloride 0.9% 1,000 ML 999 ML IV (20:32)
[2022-06-25] MEDS: fentaNYL 50 mcg/mL INJ 2mL IVP (20:32)
[2022-06-25] MEDS: ondansetron 2 mg/ML SDV 2 mL 4 MG IVP (20:32)
[2022-06-25 20:39] LABS: Basophils # 0.1 10^3/uL (0.0-0.1); Basophils % 0.7 %; Eosinophils # 0.2 10^3/uL (0.0-0.8); Eosinophils % 2.1 %; Hematocrit 40.4 % (37.0-47.0); Lymphocytes # 2.8 10^3/uL (0.8-4.8); Lymphocytes % 29.6 %; Mean Corpuscular HGB Conc 32.2 g/dL (30.0-36.0); Mean Corpuscular Hemoglobin 28.6 pg (28.0-34.0); Mean Platelet Volume 9.6 fL (7.4-10.4); Monocytes # 0.8 10^3/uL (0.2-0.9); Monocytes % 8.4 %; Neutrophils # 5.56 10^3/uL (1.8-7.7); Neutrophils % 58.9 %; Nucleated Red Blood Cells % 0 %; Platelet Count 373 10^3/cmm (130-400); Red Blood Count 4.54 10^6/uL (4.1-5.3); Red Cell Distribution Width 13.7 % (12.1-15.1); White Blood Count 9.5 10^3/uL (4.0-10.0)
[2022-06-25 20:53] LABS: Alanine Aminotransferase 10 U/L (0-33); Albumin Level 4.1 g/dL (3.5-5.2); Alkaline Phosphatase 80 U/L (35-105); Anion Gap 15.9 (5-19); Aspartate Amino Transferase 16 U/L (0-32); Blood Urea Nitrogen 14 mg/dL (6-20); Calcium 9.1 mg/dL (8.5-10.5); Carbon Dioxide 22 mmol/L (22-29); Chloride 104 mmol/L (98-107); Glomerular Filtration Rate 93.2 mL/min (90-130); Glucose 97 mg/dL (65-115); Lipase 72 U/L (13-60); Osmolality Calculated 284 mOsm/kg (285-295); Potassium 4.9 mmol/L (3.5-5.1); Sodium 137 mmol/L (136-145); Total Bilirubin 0.3 mg/dL (0.15-1.2); Total Protein 7.1 g/dL (6.6-8.7)
[2022-06-25 20:56] LABS: HCG, Serum Qual Negative (Negative)
[2022-06-25 21:36] VITALS: BP 107/66; PULSE 81; RESP 18; O2SAT 96
[2022-06-25 22:19] LABS: Add Urine Microscopic? YES; Bacteria Urine 1+ /hpf; Bilirubin Urine Neg (Negative); Blood Urine Neg (Negative); Glucose Urine UA Norm (Normal); Ketones Urine Negative (Negative); Leukocyte Esterase Urine Trace (Negative); Mucus Urine 2+ /hpf; Nitrate Urine Negative (Negative); Protein Urine Neg (Negative); RBC Urine 0-4 /hpf (0-2); Urine Appearance Clear (CLEAR); Urine Color Yellow (Yellow); Urobilinogen Urine 1 mg/dL (Negative); WBC Urine 0-4 /hpf (0-5); pH Urine 5 (5-7)
[2022-06-25 22:20] LABS: Add Urine Culture? No
[2022-06-25 22:30] VITALS: BP 100/63; PULSE 62; RESP 18; O2SAT 96
[2022-06-25] MEDS: ketorolac 30 mg/mL INJ 15 MG IVP (22:30)
[2022-06-25 23:00] VITALS: BP 100/53; PULSE 71; RESP 18; O2SAT 97
[2022-06-25 23:21] VITALS: BP 105/70; PULSE 73; RESP 18; O2SAT 95
--- NOTE | 2022-07-04 13:28 | DCPLANNER ---
auto specialty services manager called patient due to no primary care physician - no answer at this time.
== END 2022-06-25 23:26 | disposition home or self-care (01) ==
PROVIDERS: Emergency Medicine; Emergency Provider Nurse Practitioner Family
DX: K52.9 Noninfective gastroenteritis and colitis, unspecified (principal); N83.201 Unspecified ovarian cyst, right side
CPT/HCPCS: 74177; 80053; 81001; 83690; 84703; 85025; 96361; 96374; 96375; 99285; J1885; J2405; J3010; J7030

== ENCOUNTER 2022-09-18 15:20 | Emergency (ER) | payer OTHER, SELFPAY ==
[2022-09-18 15:22] VITALS: BP 116/69; PULSE 88; RESP 18; TEMP 36.9; O2SAT 97
--- NOTE | 2022-09-18 17:51 | ECG_ITS ---
[facility] Test Date: 2022-09-18 Pat Name: Ana Ballard Department: Room: Gender: Female [employer]: : [id number] Requested By: Shonda Turner Order Number: [id number] Emiliano MD: Yifan Benito M.D. Measurements Intervals [place] Rate: 89 P: 74 NC: 158 QRS: 71 QRSD: 104 T: 46 QT: 359 QTc: 438 Interpretive Statements SINUS RHYTHM INCOMPLETE RIGHT BUNDLE BRANCH BLOCK [90+ ms QRS DURATION, TERMINAL R IN V1/V2, 40+ ms S IN I/aVL/V4/V5/V6] NONSPECIFIC T-WAVE ABNORMALITY Compared to ECG 06/12/2022 17:11:43 T-wave abnormality now present Electronically Signed On 09-18-2022 23:26:19 CDT by Yifan Benito M.D. [id number]
== END 2022-09-18 18:02 | disposition left against medical advice (07) ==
PROVIDERS: Emergency Provider Family Medicine
DX: R07.89 Other chest pain (principal); R20.0 Anesthesia of skin; Z53.21 Procedure and treatment not carried out due to patient leaving prior to being seen by health care provider
CPT/HCPCS: 93005